=== PATIENT | female | born 1930 | race Caucasian/White ===

== ENCOUNTER → 2018-06-06 | Outpatient (CLI) | payer MEDICARE, OTHER ==
[~2018-06-06] MED LIST: ALEN70; AMOCLA875 PO; ASPI81CH PO; ASPI81EC; ATEN25; ATEN25 PO; ATEN50 PO; CALCIUM PO; CHOL10002 PO; CIPR250 PO; CLOP75 PO; HYDACE5 PO; IBUP600 PO; MOMENI; MONT10T; NAPR550 PO; OMEGA3 PO; OMEP20ER PO; Omeprazole20 M1 PO; PRAM.125; PRAM.125 PO; PRAM.5 PO; PROBIOTIC1 EAC1 PO; RABE20; RXPROACE PO; RXTRAM50 PO; TRAM50 PO; TRIHYD253B; Ultram50 MG PO
[2018-06-06 12:45] LABS: Source, Urine Clean Catch
[2018-06-06 15:21] LABS: Appearance, Urine Cloudy (Clear); Bilirubin, Urine Neg (Neg); Blood, Urine 3+ (Neg); Color, Urine Yellow (P-Yellow); Glucose Qualitative, Urine Neg (Neg); Ketones, Urine Neg (Neg); Leukocyte Esterase, Urine 3+ (Neg); Nitrite, Urine Neg (Neg); Protein, Urine 2+ (Neg); Urobilinogen, Urine NORM (Normal)
[2018-06-06 15:41] LABS: Bacteria Many /hpf; Red Blood Cells, Urine 0-2 /hpf (0-2); Squamous Epithelial Cells Rare /hpf (Few); White Blood Cells, Urine TNTC /hpf (0-5)
== END | disposition home or self-care (01) ==
LOC: LAB 12:43 → LAB SHORT 12:43
PROVIDERS: Internal Medicine
DX: N39.0 Urinary tract infection, site not specified (principal)
CPT/HCPCS: 81001

== ENCOUNTER → 2019-02-07 | Outpatient (CLI) | payer MEDICARE, OTHER ==
[2019-02-07 19:14] LABS: Source, Urine Catheter
[2019-02-07 19:48] LABS: Bilirubin, Urine Neg (Neg); Blood, Urine 2+ (Neg); Glucose Qualitative, Urine Neg (Neg); Ketones, Urine Neg (Neg); Leukocyte Esterase, Urine 1+ (Neg); Nitrite, Urine Neg (Neg); Protein, Urine 2+ (Neg); Specific Gravity, Urine 1.015 (1.003-1.022); Urobilinogen, Urine NORM (Normal); pH, Urine 6.5 (5.0-8.0)
[2019-02-07 20:17] LABS: Appearance, Urine Hazy (Clear); Color, Urine Yellow (P-Yellow)
[2019-02-07 20:19] LABS: Bacteria Few /hpf; Squamous Epithelial Cells Few /hpf (Few); White Blood Cells, Urine 25-50 /hpf (0-5)
== END | disposition home or self-care (01) ==
LOC: LAB SHORT 19:12 → LAB 19:12
PROVIDERS: Nurse Practitioner Women's Health
DX: R30.0 Dysuria (principal)
CPT/HCPCS: 81001; 87086

== ENCOUNTER → 2019-02-28 | Outpatient (CLI) | payer MEDICARE, OTHER ==
[2019-02-28 17:16] LABS: Source, Urine Catheter
[2019-02-28 17:36] LABS: Appearance, Urine Clear (Clear); Bilirubin, Urine Neg (Neg); Blood, Urine Neg (Neg); Color, Urine Yellow (P-Yellow); Glucose Qualitative, Urine Neg (Neg); Ketones, Urine Neg (Neg); Leukocyte Esterase, Urine 1+ (Neg); Nitrite, Urine Neg (Neg); Protein, Urine 1+ (Neg); Urobilinogen, Urine NORM (Normal)
[2019-02-28 17:47] LABS: Bacteria Rare /hpf; Red Blood Cells, Urine Rare /hpf (0-2); Squamous Epithelial Cells Few /hpf (Few)
== END | disposition home or self-care (01) ==
LOC: LAB SHORT 17:11 → LAB 17:11
PROVIDERS: Nurse Practitioner Women's Health
DX: R30.0 Dysuria (principal)
CPT/HCPCS: 81001

== ENCOUNTER → 2019-05-21 | Outpatient (CLI) | payer MEDICARE, OTHER ==
[2019-05-21 19:03] LABS: Campylobacter Sp Not Detected (NOT DETECT)
[2019-05-21 19:04] LABS: Adenovirus F 40/41 Not Detected (NOT DETECT); Astrovirus Not Detected (NOT DETECT); Cryptosporidium Not Detected (NOT DETECT); Cyclospora Cayetanensis Not Detected (NOT DETECT); E. Coli O157 Not Detected (NOT DETECT); Entamoeba Histolytica Not Detected (NOT DETECT); Enteroaggregative E. coli-EAEC Not Detected (NOT DETECT); Enteropathogenic E. coli-EPEC Not Detected (NOT DETECT); Enterotoxigenic E. coli-ETEC Not Detected (NOT DETECT); Giardia Lamblia Not Detected (NOT DETECT); Norovirus GI/GII Not Detected (NOT DETECT); Plesiomonas Shigelloides Not Detected (NOT DETECT); Rotavirus A Not Detected (NOT DETECT); Salmonella Sp Not Detected (NOT DETECT); Sapovirus Not Detected (NOT DETECT); Shiga Toxin-prod E. coli-STEC Not Detected (NOT DETECT); Shigella/Enteroin E. coli-EIEC Not Detected (NOT DETECT); Vibrio Cholerae Not Detected (NOT DETECT); Vibrio Sp Not Detected (NOT DETECT); Yersinia Enterocolitica Not Detected (NOT DETECT)
== END | disposition home or self-care (01) ==
LOC: LAB 17:15 → LAB SHORT 17:15 → LAB FUT 05-20 11:10
PROVIDERS: Internal Medicine Gastroenterology
DX: R19.7 Diarrhea, unspecified (principal); R30.0 Dysuria
CPT/HCPCS: 81003; 81015; 87086; 87507

== ENCOUNTER 2019-06-19 14:45 | Emergency (ER) | payer MEDICARE, OTHER ==
[~2019-06-19] VITALS: Ht 149.9 cm; Wt 48.1 kg
[2019-06-19 15:22] LABS: BASOPHILS ABSOLUTE AUTO 0.04 K/mm3 (0.00-0.23); BASOPHILS PERCENT AUTO 1 % (0-2); EOSINOPHILS ABSOLUTE AUTO 0.17 K/mm3 (0.00-0.68); EOSINOPHILS PERCENT AUTO 2 % (0-6); Hematocrit 43.7 % (33.0-51.0); Hemoglobin 14.4 g/dL (11.5-16.0); IMMATURE GRAN ABSOLUTE AUTO 0.03 K/mm3 (0.00-0.10); IMMATURE GRAN PERCENT AUTO 0 % (0-1); LYMPHOCYTES ABSOLUTE AUTO 2.75 K/mm3 (0.84-5.20); LYMPHOCYTES PERCENT AUTO 32 % (21-46); MONOCYTES ABSOLUTE AUTO 0.77 K/mm3 (0.16-1.47); MONOCYTES PERCENT AUTO 9 % (4-13); Mean Corpuscular HGB 29.8 pg (26.0-34.0); Mean Corpuscular Volume 91 fL (80-100); Mean Platelet Volume 9.3 fL (9.1-12.4); NEUTROPHILS ABSOLUTE AUTO 4.86 K/mm3 (1.96-9.15); NEUTROPHILS PERCENT AUTO 56 % (41-73); Platelet Count 281 K/mm3 (150-400); RDW Coefficient Variation 13.1 % (11.7-14.2); RDW Standard Deviation 43.2 fL (35.1-46.3); Red Blood Cell Count 4.83 M/mm3 (3.80-5.20); White Blood Cell Count 8.62 K/mm3 (4.00-11.30)
[2019-06-19 15:43] LABS: Alanine Aminotransfer (ALT/SGP 29 U/L (12-78); Albumin, Blood 3.6 g/dL (3.4-5.0); Alk Phos 77 U/L (50-136); Anion Gap 5 mmol/L (6-16); Aspartate Aminotrans (AST/SGOT 18 U/L (12-37); Bilirubin, Total 0.3 mg/dL (0.1-1.0); Blood Urea Nitrogen 11 mg/dL (8-24); Bun/Creatinine Ratio 14.7 (12.0-20.0); CO2, Blood 29 mmol/L (21-32); Chloride, Blood 102 mmol/L (98-108); Creatinine, Blood 0.75 mg/dL (0.40-1.00); Globulin, Blood 3.7 g/dL (2.2-4.0); Glomerular Filtration Rate >60 (60-); Glucose, Blood 102 mg/dL (70-99); Sodium, Blood 136 mmol/L (136-145); Total Protein, Blood 7.3 g/dL (6.4-8.2)
== END 2019-06-19 18:40 | disposition home or self-care (01) ==
LOC: ER 14:45
PROVIDERS: Physician Assistant
DX: R19.5 Other fecal abnormalities (principal); Z88.1 Allergy status to other antibiotic agents; Z88.5 Allergy status to narcotic agent; Z88.8 Allergy status to other drugs, medicaments and biological substances; Z79.899 Other long term (current) drug therapy; Z79.82 Long term (current) use of aspirin; I10 Essential (primary) hypertension
CPT/HCPCS: 36415; 80053; 82272; 83690; 85025; 86850; 86900; 86901; 99283

== ENCOUNTER → 2019-09-17 | Outpatient (CLI) | payer MEDICARE, OTHER ==
[2019-09-17 09:03] LABS: Source, Urine Clean Catch
[2019-09-17 09:36] LABS: Appearance, Urine Hazy (Clear); Bilirubin, Urine Neg (Neg); Blood, Urine 3+ (Neg); Color, Urine Yellow (P-Yellow); Glucose Qualitative, Urine Neg (Neg); Ketones, Urine Neg (Neg); Leukocyte Esterase, Urine 3+ (Neg); Nitrite, Urine Neg (Neg); Protein, Urine 2+ (Neg); Specific Gravity, Urine 1.015 (1.003-1.022); Urobilinogen, Urine NORM (Normal)
[2019-09-17 09:43] LABS: White Blood Cells, Urine TNTC /hpf (0-5)
[2019-09-17 09:44] LABS: Bacteria Few /hpf; Squamous Epithelial Cells Rare /hpf (Few)
[2019-09-17 09:45] LABS: Other Crystals Rare /hpf
== END | disposition home or self-care (01) ==
LOC: LAB SHORT 09:01 → LAB 09:01 → LAB FUT 09-16 18:45
PROVIDERS: Urology
DX: N30.00 Acute cystitis without hematuria (principal)
CPT/HCPCS: 81001; 87086

== ENCOUNTER → 2019-12-06 | Outpatient (CLI) | payer MEDICARE, OTHER ==
[2019-12-06 16:13] LABS: Adenovirus F 40/41 Not Detected (NOT DETECT); Astrovirus Not Detected (NOT DETECT); Campylobacter Sp Not Detected (NOT DETECT); Cryptosporidium Not Detected (NOT DETECT); Cyclospora Cayetanensis Not Detected (NOT DETECT); E. Coli O157 Not Detected (NOT DETECT); Entamoeba Histolytica Not Detected (NOT DETECT); Enteroaggregative E. coli-EAEC Not Detected (NOT DETECT); Enteropathogenic E. coli-EPEC Not Detected (NOT DETECT); Enterotoxigenic E. coli-ETEC Not Detected (NOT DETECT); Giardia Lamblia Not Detected (NOT DETECT); Norovirus GI/GII Not Detected (NOT DETECT); Plesiomonas Shigelloides Not Detected (NOT DETECT); Rotavirus A Not Detected (NOT DETECT); Salmonella Sp Not Detected (NOT DETECT); Sapovirus Not Detected (NOT DETECT); Shiga Toxin-prod E. coli-STEC Not Detected (NOT DETECT); Shigella/Enteroin E. coli-EIEC Not Detected (NOT DETECT); Vibrio Cholerae Not Detected (NOT DETECT); Vibrio Sp Not Detected (NOT DETECT); Yersinia Enterocolitica Not Detected (NOT DETECT)
== END | disposition home or self-care (01) ==
LOC: OLS 10:30 → LAB SHORT 10:30 → LAB FUT 07-10 10:05
PROVIDERS: Internal Medicine
DX: K52.9 Noninfective gastroenteritis and colitis, unspecified (principal)
CPT/HCPCS: 0097U

== ENCOUNTER → 2019-12-12 | Outpatient (CLI) | payer MEDICARE, OTHER ==
[2019-12-12 09:54] LABS: Source, Urine Clean Catch
[2019-12-12 11:13] LABS: White Blood Cells, Urine TNTC /hpf (0-5)
[2019-12-12 11:14] LABS: Bacteria Few /hpf; Calcium Oxalate Crystals Many /hpf; Red Blood Cells, Urine 25-50 /hpf (0-2); Squamous Epithelial Cells Few /hpf (Few)
== END | disposition home or self-care (01) ==
LOC: LAB SHORT 09:08 → OLS 09:08
PROVIDERS: Urology
DX: R39.15 Urgency of urination (principal)
CPT/HCPCS: 81001; 87086

== ENCOUNTER → 2020-05-20 | Outpatient (CLI) | payer MEDICARE, OTHER | END | disposition home or self-care (01) | LOC: LAB SHORT 19:00 → LAB EV 19:00 | DX: N39.0 Urinary tract infection, site not specified (principal) | CPT/HCPCS: 87077; 87086; 87186 ==

== ENCOUNTER → 2020-06-22 | Outpatient (CLI) | payer MEDICARE, OTHER | END | disposition home or self-care (01) | LOC: LAB SHORT 12:26 → PLD 12:26 → LAB SHORT 06-23 09:21 | DX: D48.5 Neoplasm of uncertain behavior of skin (principal) | CPT/HCPCS: 88305 ==

== ENCOUNTER → 2020-08-24 | Outpatient (CLI) | payer MEDICARE, OTHER ==
[2020-08-24 11:16] LABS: Source, Urine Clean Catch
[2020-08-24 12:18] LABS: Bilirubin, Urine Neg (Neg); Blood, Urine 3+ (Neg); Glucose Qualitative, Urine Neg (Neg); Ketones, Urine Neg (Neg); Leukocyte Esterase, Urine Neg (Neg); Nitrite, Urine Neg (Neg); Protein, Urine 1+ (Neg); Urobilinogen, Urine NORM (Normal); pH, Urine 6.5 (5.0-8.0)
[2020-08-24 12:37] LABS: Appearance, Urine Clear (Clear); Color, Urine Yellow (P-Yellow)
[2020-08-24 12:38] LABS: Bacteria Not Seen /hpf; Squamous Epithelial Cells Few /hpf (Few)
== END | disposition home or self-care (01) ==
LOC: LAB SHORT 11:12 → OLS 11:12 → LAB FUT 08-21 16:15
PROVIDERS: Urology
DX: N39.0 Urinary tract infection, site not specified (principal); R39.15 Urgency of urination
CPT/HCPCS: 81001

== ENCOUNTER 2021-01-28 06:44 | Day surgery (SDC) | payer MEDICARE, OTHER ==
[~2021-01-28] VITALS: Ht 149.9 cm; Wt 71.9 kg
[~2021-01-28 06:44] MED LIST changes: -ATEN50 PO; -CHOL10002 PO; +CHOLP PO; -CLOP75 PO; -OMEGA3 PO; +TRAZ50 PO
[2021-02-16] MEDS ORDERED: Mirapex1 MG PO (13:43)
[2021-02-16] MEDS ORDERED: ONDA8 PO (13:44)
[2021-02-16] MEDS ORDERED: TRAM50 PO (13:45)
[2021-02-16] MEDS ORDERED: LATANOPROST2.5 M3 BOTHEYES (13:46)
[2021-02-16] MEDS ORDERED: ATEN50 PO (13:46)
[2021-02-16] MEDS ORDERED: Pyridium100 MG PO (13:46)
[2021-02-16] MEDS ORDERED: CLOP75 PO (13:46)
[2021-02-16] MEDS ORDERED: VITAMIN D325 MC3 PO (14:29)
[2021-02-16] MEDS ORDERED: FISH OIL 1,2001 EAC7 PO (14:29)
[2021-02-16] MEDS ORDERED: DICLOFENAC SOD100 G1 TOP (14:30)
[2021-02-16] MEDS ORDERED: ESTRADIOL 0.1 MG VAG (14:30)
[2021-02-18] MEDS ORDERED: VISBIOME 112.51 EACH PO (11:26)
[2021-02-18] MEDS ORDERED: Acetaminophen325 M1 PO (11:26)
[2021-02-18] MEDS ORDERED: CEFP200 PO (11:26)
[2021-02-18] MEDS ORDERED: MIRALAX17 GM PO (11:26)
== END 2021-01-28 09:45 | disposition home or self-care (01) ==
LOC: ORSCSDS 06:44
PROVIDERS: Internal Medicine Gastroenterology
PROC: 0DBL8ZX Excision of Transverse Colon, Via Natural or Artificial Opening Endoscopic, Diagnostic (ICD-10-PCS; principal; 2021-01-28 08:00)
PROC: 0DBE8ZX Excision of Large Intestine, Via Natural or Artificial Opening Endoscopic, Diagnostic (ICD-10-PCS; principal; 2021-01-28 08:00)
PROC: 0DBK8ZX Excision of Ascending Colon, Via Natural or Artificial Opening Endoscopic, Diagnostic (ICD-10-PCS; principal; 2021-01-28 08:00)
DX: R19.7 Diarrhea, unspecified (principal); K62.89 Other specified diseases of anus and rectum; D12.3 Benign neoplasm of transverse colon; D12.2 Benign neoplasm of ascending colon; K57.30 Diverticulosis of large intestine without perforation or abscess without bleeding; I10 Essential (primary) hypertension; E11.9 Type 2 diabetes mellitus without complications; Z86.73 Personal history of transient ischemic attack (TIA), and cerebral infarction without residual deficits; E03.9 Hypothyroidism, unspecified; E78.5 Hyperlipidemia, unspecified; Z79.899 Other long term (current) drug therapy
CPT/HCPCS: 82947; 88305; J0461; J2405; J2704; J7120

== ENCOUNTER → 2021-02-11 | Outpatient (CLI) | payer MEDICARE, OTHER ==
[~2021-02-11] MED LIST changes: +ACET325 PO; +ATEN50 PO; +Acetaminophen325 M1 PO; +CEFP200 PO; +CLOP75 PO; +DICLOFENAC SOD100 G1 TOP; +ESTRADIOL 0.1 MG VAG; +FISH OIL 1,2001 EAC7 PO; +LATA.005SO BOTHEYES; +LATANOPROST2.5 M3 BOTHEYES; +MIRALAX17 GM PO; +Mirapex1 MG PO; +ONDA8 PO; +PLAVIX75 MG PO; +PRAMIPEXOLE DIHY1 M1 PO; +Pyridium100 MG PO; +SULFAMETHOXAZO1 EAC1 PO; +Tenormin50 MG PO; +VISBIOME 112.51 EACH PO; +VITAMIN D325 MC3 PO
== END | disposition home or self-care (01) ==
LOC: LAB SHORT 14:32 → LAB 14:32 → EDSTATUS 02-10 18:30 → LAB FUT 02-10 18:30
DX: R39.82 Chronic bladder pain (principal)
CPT/HCPCS: 87077; 87086; 87186

== ENCOUNTER 2021-02-13 19:26 | Emergency (ER) | payer MEDICARE, OTHER ==
[~2021-02-13] VITALS: Ht 149.9 cm; Wt 74.8 kg
[~2021-02-13 19:26] MED LIST changes: -ACET325 PO; -ATEN50 PO; -Acetaminophen325 M1 PO; -CEFP200 PO; -CLOP75 PO; -DICLOFENAC SOD100 G1 TOP; -ESTRADIOL 0.1 MG VAG; -FISH OIL 1,2001 EAC7 PO; -LATA.005SO BOTHEYES; -LATANOPROST2.5 M3 BOTHEYES; -MIRALAX17 GM PO; -Mirapex1 MG PO; -ONDA8 PO; -PLAVIX75 MG PO; -PRAMIPEXOLE DIHY1 M1 PO; -Pyridium100 MG PO; -SULFAMETHOXAZO1 EAC1 PO; -Tenormin50 MG PO; -VISBIOME 112.51 EACH PO; -VITAMIN D325 MC3 PO
[2021-02-13] MEDS ORDERED: SULFAMETHOXAZO1 EAC1 PO (19:56)
[2021-02-13] MEDS ORDERED: ACET325 PO (19:57)
[2021-02-13 20:50] LABS: Source, Urine Catheter
[2021-02-13 20:53] LABS: Appearance, Urine Hazy (Clear); BASOPHILS ABSOLUTE AUTO 0.04 K/mm3 (0.00-0.23); BASOPHILS PERCENT AUTO 1 % (0-2); Bilirubin, Urine Neg (Neg); Blood, Urine 3+ (Neg); Color, Urine Yellow (P-Yellow); EOSINOPHILS ABSOLUTE AUTO 0.21 K/mm3 (0.00-0.68); EOSINOPHILS PERCENT AUTO 3 % (0-6); Glucose Qualitative, Urine Neg (Neg); Hematocrit 42.6 % (33.0-51.0); Hemoglobin 14.1 g/dL (11.5-16.0); IMMATURE GRAN ABSOLUTE AUTO 0.04 K/mm3 (0.00-0.10); IMMATURE GRAN PERCENT AUTO 1 % (0-1); Ketones, Urine Neg (Neg); LYMPHOCYTES ABSOLUTE AUTO 2.07 K/mm3 (0.84-5.20); LYMPHOCYTES PERCENT AUTO 25 % (21-46); Leukocyte Esterase, Urine 3+ (Neg); MONOCYTES ABSOLUTE AUTO 0.89 K/mm3 (0.16-1.47); MONOCYTES PERCENT AUTO 11 % (4-13); Mean Corpuscular HGB 28.6 pg (26.0-34.0); Mean Corpuscular HGB Conc 33.1 g/dL (31.5-36.5); Mean Corpuscular Volume 86 fL (80-100); NEUTROPHILS ABSOLUTE AUTO 5.12 K/mm3 (1.96-9.15); NEUTROPHILS PERCENT AUTO 61 % (41-73); Nitrite, Urine Neg (Neg); Platelet Count 374 K/mm3 (150-400); Protein, Urine 2+ (Neg); RDW Coefficient Variation 13.3 % (11.7-14.2); RDW Standard Deviation 42.3 fL (35.1-46.3); Red Blood Cell Count 4.93 M/mm3 (3.80-5.20); Urobilinogen, Urine NORM (Normal); White Blood Cell Count 8.37 K/mm3 (4.00-11.30)
[2021-02-13 21:08] LABS: White Blood Cells, Urine 50-100 /hpf (0-5)
[2021-02-13 21:10] LABS: Alanine Aminotransfer (ALT/SGP 22 U/L (12-78); Albumin, Blood 3.4 g/dL (3.4-5.0); Albumin/Globulin Ratio 0.7 (0.8-1.8); Alk Phos 72 U/L (50-136); Anion Gap 9 mmol/L (6-16); Aspartate Aminotrans (AST/SGOT 14 U/L (12-37); Bacteria Mod /hpf; Bilirubin, Total 0.2 mg/dL (0.1-1.0); Blood Urea Nitrogen 13 mg/dL (8-24); Bun/Creatinine Ratio 14.5 (12.0-20.0); CO2, Blood 26 mmol/L (21-32); Calcium, Blood 10.6 mg/dL (8.5-10.1); Chloride, Blood 95 mmol/L (98-108); Globulin, Blood 4.8 g/dL (2.2-4.0); Glomerular Filtration Rate >60 (60-); Glucose, Blood 108 mg/dL (70-99); Magnesium, Blood 2.1 mg/dL (1.6-2.4); Potassium, Blood 3.2 mmol/L (3.5-5.5); Sodium, Blood 130 mmol/L (136-145); Squamous Epithelial Cells Few /hpf (Few); Total Protein, Blood 8.2 g/dL (6.4-8.2); Troponin I <0.015 ng/mL (0.000-0.040)
[2021-02-16] MEDS ORDERED: Mirapex1 MG PO (13:43)
[2021-02-16] MEDS ORDERED: ONDA8 PO (13:44)
[2021-02-16] MEDS ORDERED: TRAM50 PO (13:45)
[2021-02-16] MEDS ORDERED: CLOP75 PO (13:46)
[2021-02-16] MEDS ORDERED: ATEN50 PO (13:46)
[2021-02-16] MEDS ORDERED: LATANOPROST2.5 M3 BOTHEYES (13:46)
[2021-02-16] MEDS ORDERED: Pyridium100 MG PO (13:46)
[2021-02-16] MEDS ORDERED: VITAMIN D325 MC3 PO (14:29)
[2021-02-16] MEDS ORDERED: FISH OIL 1,2001 EAC7 PO (14:29)
[2021-02-16] MEDS ORDERED: DICLOFENAC SOD100 G1 TOP (14:30)
[2021-02-16] MEDS ORDERED: ESTRADIOL 0.1 MG VAG (14:30)
[2021-02-18] MEDS ORDERED: MIRALAX17 GM PO (11:26)
[2021-02-18] MEDS ORDERED: VISBIOME 112.51 EACH PO (11:26)
[2021-02-18] MEDS ORDERED: Acetaminophen325 M1 PO (11:26)
[2021-02-18] MEDS ORDERED: CEFP200 PO (11:26)
== END 2021-02-14 00:48 | disposition home or self-care (01) ==
LOC: ER 19:26
PROVIDERS: Emergency Medicine
DX: N39.0 Urinary tract infection, site not specified (principal); Z79.899 Other long term (current) drug therapy; Z88.1 Allergy status to other antibiotic agents; Z88.5 Allergy status to narcotic agent; Z88.8 Allergy status to other drugs, medicaments and biological substances
CPT/HCPCS: 36415; 71045; 80053; 81001; 83735; 84484; 85025; 87077; 87086; 87186; 93005; 93010; 96361; 96365; 99285-25; J0696

== ENCOUNTER 2021-02-16 11:48 | Inpatient (IN) | payer MEDICARE, OTHER ==
[~2021-02-16] VITALS: Ht 149.9 cm; Wt 73.0 kg
[~2021-02-16 11:48] MED LIST changes: +ACET325 PO; +SULFAMETHOXAZO1 EAC1 PO
[2021-02-16 12:28] LABS: BASOPHILS ABSOLUTE AUTO 0.06 K/mm3 (0.00-0.23); BASOPHILS PERCENT AUTO 1 % (0-2); EOSINOPHILS ABSOLUTE AUTO 0.16 K/mm3 (0.00-0.68); EOSINOPHILS PERCENT AUTO 1 % (0-6); Hematocrit 42.7 % (33.0-51.0); Hemoglobin 14.4 g/dL (11.5-16.0); IMMATURE GRAN ABSOLUTE AUTO 0.13 K/mm3 (0.00-0.10); IMMATURE GRAN PERCENT AUTO 1 % (0-1); LYMPHOCYTES ABSOLUTE AUTO 2.21 K/mm3 (0.84-5.20); LYMPHOCYTES PERCENT AUTO 19 % (21-46); MONOCYTES ABSOLUTE AUTO 0.66 K/mm3 (0.16-1.47); MONOCYTES PERCENT AUTO 6 % (4-13); Mean Corpuscular HGB 29.3 pg (26.0-34.0); Mean Corpuscular HGB Conc 33.7 g/dL (31.5-36.5); Mean Corpuscular Volume 87 fL (80-100); Mean Platelet Volume 8.4 fL (9.1-12.4); NEUTROPHILS ABSOLUTE AUTO 8.52 K/mm3 (1.96-9.15); NEUTROPHILS PERCENT AUTO 73 % (41-73); Platelet Count 446 K/mm3 (150-400); RDW Coefficient Variation 13.2 % (11.7-14.2); RDW Standard Deviation 42.3 fL (35.1-46.3); Red Blood Cell Count 4.92 M/mm3 (3.80-5.20); White Blood Cell Count 11.74 K/mm3 (4.00-11.30)
[2021-02-16 12:44] LABS: Alanine Aminotransfer (ALT/SGP 28 U/L (12-78); Albumin, Blood 3.2 g/dL (3.4-5.0); Albumin/Globulin Ratio 0.7 (0.8-1.8); Alk Phos 73 U/L (50-136); Anion Gap 6 mmol/L (6-16); Aspartate Aminotrans (AST/SGOT 18 U/L (12-37); Bilirubin, Total 0.4 mg/dL (0.1-1.0); Blood Urea Nitrogen 22 mg/dL (8-24); Bun/Creatinine Ratio 23.8 (12.0-20.0); CO2, Blood 27 mmol/L (21-32); Calcium, Blood 10.6 mg/dL (8.5-10.1); Chloride, Blood 97 mmol/L (98-108); Creatinine, Blood 0.93 mg/dL (0.40-1.00); Globulin, Blood 4.4 g/dL (2.2-4.0); Glomerular Filtration Rate >60 (60-); Glucose, Blood 136 mg/dL (70-99); Potassium, Blood 4.6 mmol/L (3.5-5.5); Sodium, Blood 130 mmol/L (136-145); Total Protein, Blood 7.6 g/dL (6.4-8.2)
[2021-02-16 13:21] LABS: Source, Urine Clean Catch
[2021-02-16 13:36] LABS: Appearance, Urine Hazy (Clear); Bilirubin, Urine Neg (Neg); Blood, Urine 2+ (Neg); Color, Urine Yellow (P-Yellow); Glucose Qualitative, Urine Neg (Neg); Ketones, Urine Neg (Neg); Leukocyte Esterase, Urine 3+ (Neg); Nitrite, Urine Neg (Neg); Protein, Urine 1+ (Neg); Urobilinogen, Urine NORM (Normal)
[2021-02-16] MEDS ORDERED: Mirapex1 MG PO ×2 (13:43)
[2021-02-16] MEDS ORDERED: ONDA8 PO ×2 (13:44)
[2021-02-16] MEDS ORDERED: TRAM50 PO ×2 (13:45)
[2021-02-16] MEDS ORDERED: ATEN50 PO ×2 (13:46)
[2021-02-16] MEDS ORDERED: Pyridium100 MG PO ×2 (13:46)
[2021-02-16] MEDS ORDERED: LATANOPROST2.5 M3 BOTHEYES ×2 (13:46)
[2021-02-16] MEDS ORDERED: CLOP75 PO ×2 (13:46)
[2021-02-16 13:56] LABS: Amorphous Light (0-Heavy); Bacteria Mod /hpf; Mucus Light (0-Heavy); Squamous Epithelial Cells Few /hpf (Few); White Blood Cells, Urine 25-50 /hpf (0-5)
[2021-02-16] MEDS ORDERED: FISH OIL 1,2001 EAC7 PO ×2 (14:29)
[2021-02-16] MEDS ORDERED: VITAMIN D325 MC3 PO ×2 (14:29)
[2021-02-16] MEDS ORDERED: ESTRADIOL 0.1 MG VAG ×2 (14:30)
[2021-02-16] MEDS ORDERED: DICLOFENAC SOD100 G1 TOP ×2 (14:30)
--- NOTE | 2021-02-16 17:34 | NUR ---
SUMMARY PT ADMITTED FROM THE ER, ABLE TO STAND AND TRANSFER TO THE BED, ALERT AND ORIENTED, FORGETFUL, NINILCHIK, PLEASANT AND COOPERATIVE WITH CARE, ORIENTED PT TO THE ROOM AND CALL SYSTEM, VSS, WILL CONT TO MONITOR
--- NOTE | 2021-02-17 04:33 | NUR ---
SUMMARY PT C/O CONSTIPATION. PT GIVEN MOM PER EMAR. PT HAS HAD NOTED BM'S. PT AOX3 AND COOPERATIVE W/ CARE. PT BLACKMAN DRAINING WELL TO GRAVITY. PT DENIES SOB OR CX PAIN. PT CURRENTLY SLEEPING IN NO DISTRESS. CALL LIGHT IN REACH AND BED ALARM ON.
[2021-02-17 05:05] LABS: BASOPHILS ABSOLUTE AUTO 0.05 K/mm3 (0.00-0.23); BASOPHILS PERCENT AUTO 0 % (0-2); EOSINOPHILS ABSOLUTE AUTO 0.14 K/mm3 (0.00-0.68); EOSINOPHILS PERCENT AUTO 1 % (0-6); Hemoglobin 13.7 g/dL (11.5-16.0); IMMATURE GRAN PERCENT AUTO 1 % (0-1); LYMPHOCYTES ABSOLUTE AUTO 2.38 K/mm3 (0.84-5.20); LYMPHOCYTES PERCENT AUTO 21 % (21-46); MONOCYTES PERCENT AUTO 7 % (4-13); Mean Corpuscular HGB 29.1 pg (26.0-34.0); Mean Corpuscular HGB Conc 33.4 g/dL (31.5-36.5); Mean Corpuscular Volume 87 fL (80-100); Mean Platelet Volume 8.5 fL (9.1-12.4); NEUTROPHILS ABSOLUTE AUTO 7.68 K/mm3 (1.96-9.15); NEUTROPHILS PERCENT AUTO 69 % (41-73); Platelet Count 431 K/mm3 (150-400); RDW Coefficient Variation 13.4 % (11.7-14.2); White Blood Cell Count 11.15 K/mm3 (4.00-11.30)
[2021-02-17 05:27] LABS: Alanine Aminotransfer (ALT/SGP 24 U/L (12-78); Albumin, Blood 2.7 g/dL (3.4-5.0); Albumin/Globulin Ratio 0.7 (0.8-1.8); Alk Phos 57 U/L (50-136); Anion Gap 6 mmol/L (6-16); Aspartate Aminotrans (AST/SGOT 15 U/L (12-37); Bilirubin, Total 0.2 mg/dL (0.1-1.0); Blood Urea Nitrogen 14 mg/dL (8-24); Bun/Creatinine Ratio 18.2 (12.0-20.0); CO2, Blood 27 mmol/L (21-32); Calcium, Blood 9.9 mg/dL (8.5-10.1); Chloride, Blood 102 mmol/L (98-108); Creatinine, Blood 0.77 mg/dL (0.40-1.00); Glomerular Filtration Rate >60 (60-); Glucose, Blood 129 mg/dL (70-99); Potassium, Blood 4.3 mmol/L (3.5-5.5); Sodium, Blood 135 mmol/L (136-145); Total Protein, Blood 6.7 g/dL (6.4-8.2)
--- NOTE | 2021-02-17 16:53 | NUR ---
PATIENT IS ALERT AND ORIENTED AND COOPERATIVE WITH CARE. SHE CALLS APPROPRIATELY. PATIENT WAS BATHED THIS MORNING BY FAMILY. SHE HAD A BM THIS MORNING. BLACKMAN IS IN PLACE AND DRAINING. PLAN IS TO DISCHARGE BACK TO [facility] WITH HOME HEALTH. THE PATIENT'S FAMILY IS VERY INVOLVED IN HER CARE. WILL CONTINUE TO MONITOR
[2021-02-18 05:06] LABS: BASOPHILS ABSOLUTE AUTO 0.06 K/mm3 (0.00-0.23); BASOPHILS PERCENT AUTO 1 % (0-2); EOSINOPHILS ABSOLUTE AUTO 0.34 K/mm3 (0.00-0.68); EOSINOPHILS PERCENT AUTO 4 % (0-6); Hematocrit 40.4 % (33.0-51.0); Hemoglobin 13.3 g/dL (11.5-16.0); IMMATURE GRAN ABSOLUTE AUTO 0.13 K/mm3 (0.00-0.10); IMMATURE GRAN PERCENT AUTO 2 % (0-1); LYMPHOCYTES ABSOLUTE AUTO 2.05 K/mm3 (0.84-5.20); LYMPHOCYTES PERCENT AUTO 23 % (21-46); MONOCYTES PERCENT AUTO 9 % (4-13); Mean Corpuscular HGB 29.6 pg (26.0-34.0); Mean Corpuscular HGB Conc 32.9 g/dL (31.5-36.5); Mean Corpuscular Volume 90 fL (80-100); Mean Platelet Volume 8.6 fL (9.1-12.4); NEUTROPHILS ABSOLUTE AUTO 5.51 K/mm3 (1.96-9.15); NEUTROPHILS PERCENT AUTO 62 % (41-73); Platelet Count 396 K/mm3 (150-400); RDW Coefficient Variation 13.6 % (11.7-14.2); RDW Standard Deviation 44.5 fL (35.1-46.3); Red Blood Cell Count 4.49 M/mm3 (3.80-5.20); White Blood Cell Count 8.89 K/mm3 (4.00-11.30)
[2021-02-18 05:25] LABS: Albumin, Blood 2.7 g/dL (3.4-5.0); Anion Gap 5 mmol/L (6-16); Blood Urea Nitrogen 18 mg/dL (8-24); Bun/Creatinine Ratio 21.6 (12.0-20.0); CO2, Blood 27 mmol/L (21-32); Calcium, Blood 9.9 mg/dL (8.5-10.1); Chloride, Blood 101 mmol/L (98-108); Creatinine, Blood 0.83 mg/dL (0.40-1.00); Glomerular Filtration Rate >60 (60-); Glucose, Blood 105 mg/dL (70-99); Phosphorus, Blood 2.4 mg/dL (2.5-4.9); Potassium, Blood 4.3 mmol/L (3.5-5.5); Sodium, Blood 133 mmol/L (136-145)
--- NOTE | 2021-02-18 05:49 | NUR ---
SUMMARY NO NEW ISSUES NOTED. PT HAS SLEPT WELL T/O SHIFT. PT MEDICATED FOR BACK PAIN THIS AM. PT BLACKMAN DRAINING WELL. PT REPORTS BEING EAGER TO GO HOME. PT CURRENTLY SLEEPING IN NO DISTRESS. CALL LIGHT IN REACH.
[2021-02-18] MEDS ORDERED: VISBIOME 112.51 EACH PO ×2 (11:26)
[2021-02-18] MEDS ORDERED: Acetaminophen325 M1 PO ×2 (11:26)
[2021-02-18] MEDS ORDERED: MIRALAX17 GM PO ×2 (11:26)
[2021-02-18] MEDS ORDERED: CEFP200 PO ×2 (11:26)
== END 2021-02-18 12:40 | disposition home health service (06) | DRG 871 ==
LOC: ER 11:48 → MEDS 11:49
PROVIDERS: Emergency Medicine; Nurse Practitioner Acute Care; ADMIT Family Medicine
DX: A41.4 Sepsis due to anaerobes (principal); G92 Toxic encephalopathy; N39.0 Urinary tract infection, site not specified; E87.1 Hypo-osmolality and hyponatremia; N13.30 Unspecified hydronephrosis; Z16.39 Resistance to other specified antimicrobial drug; Z66 Do not resuscitate; G25.81 Restless legs syndrome; K56.41 Fecal impaction; E78.5 Hyperlipidemia, unspecified; K21.9 Gastro-esophageal reflux disease without esophagitis; I10 Essential (primary) hypertension; M19.90 Unspecified osteoarthritis, unspecified site; E03.9 Hypothyroidism, unspecified; Z90.49 Acquired absence of other specified parts of digestive tract; Z90.89 Acquired absence of other organs; Z90.710 Acquired absence of both cervix and uterus; Z88.1 Allergy status to other antibiotic agents; Z88.5 Allergy status to narcotic agent; Z88.8 Allergy status to other drugs, medicaments and biological substances; Z79.899 Other long term (current) drug therapy; Z98.890 Other specified postprocedural states
CPT/HCPCS: 36415; 51702; 74177; 80053; 80069; 81001; 83690; 85025; 87086; 96361; 96365-59; 96366; 96372; 96375; 96376; 97110; 97116; 97162; 97165; 97530; 97535; 99285-25; A9270; G0378; J0696; J1650; J2405; J3010; J7030; J7050; P9612; Q9967

== ENCOUNTER 2021-06-18 10:54 | Emergency (ER) | payer MEDICARE, OTHER ==
[~2021-06-18] VITALS: Ht 149.9 cm; Wt 72.6 kg
[~2021-06-18 10:54] MED LIST changes: +ATEN50 PO; +Acetaminophen325 M1 PO; +CEFP200 PO; +CLOP75 PO; +DICLOFENAC SOD100 G1 TOP; +ESTRADIOL 0.1 MG VAG; +FISH OIL 1,2001 EAC7 PO; +LATANOPROST2.5 M3 BOTHEYES; +MIRALAX17 GM PO; +Mirapex1 MG PO; +ONDA8 PO; +Pyridium100 MG PO; +VISBIOME 112.51 EACH PO; +VITAMIN D325 MC3 PO
[2021-06-18 11:30] LABS: BASOPHILS ABSOLUTE AUTO 0.04 K/mm3 (0.00-0.23); BASOPHILS PERCENT AUTO 0 % (0-2); EOSINOPHILS ABSOLUTE AUTO 0.21 K/mm3 (0.00-0.68); EOSINOPHILS PERCENT AUTO 2 % (0-6); Hematocrit 39.1 % (33.0-51.0); Hemoglobin 13.2 g/dL (11.5-16.0); IMMATURE GRAN ABSOLUTE AUTO 0.06 K/mm3 (0.00-0.10); IMMATURE GRAN PERCENT AUTO 1 % (0-1); LYMPHOCYTES ABSOLUTE AUTO 2.83 K/mm3 (0.84-5.20); LYMPHOCYTES PERCENT AUTO 31 % (21-46); MONOCYTES ABSOLUTE AUTO 0.69 K/mm3 (0.16-1.47); MONOCYTES PERCENT AUTO 8 % (4-13); Mean Corpuscular HGB Conc 33.8 g/dL (31.5-36.5); Mean Corpuscular Volume 89 fL (80-100); Mean Platelet Volume 9.4 fL (9.1-12.4); NEUTROPHILS ABSOLUTE AUTO 5.36 K/mm3 (1.96-9.15); NEUTROPHILS PERCENT AUTO 58 % (41-73); Platelet Count 269 K/mm3 (150-400); RDW Coefficient Variation 13.2 % (11.7-14.2); RDW Standard Deviation 42.8 fL (35.1-46.3); White Blood Cell Count 9.19 K/mm3 (4.00-11.30)
[2021-06-18 11:54] LABS: Alanine Aminotransfer (ALT/SGP 25 U/L (12-78); Albumin, Blood 3.5 g/dL (3.4-5.0); Alk Phos 59 U/L (50-136); Anion Gap 5 mmol/L (6-16); Aspartate Aminotrans (AST/SGOT 12 U/L (12-37); Bilirubin, Total 0.2 mg/dL (0.1-1.0); Blood Urea Nitrogen 20 mg/dL (8-24); Bun/Creatinine Ratio 25.5 (12.0-20.0); CO2, Blood 28 mmol/L (21-32); Calcium, Blood 9.9 mg/dL (8.5-10.1); Chloride, Blood 104 mmol/L (98-108); Creatinine, Blood 0.78 mg/dL (0.40-1.00); Globulin, Blood 3.6 g/dL (2.2-4.0); Glomerular Filtration Rate >60 (60-); Glucose, Blood 139 mg/dL (70-99); Potassium, Blood 3.6 mmol/L (3.5-5.5); Sodium, Blood 137 mmol/L (136-145); Total Protein, Blood 7.1 g/dL (6.4-8.2)
[2021-06-18] MEDS ORDERED: PLAVIX75 MG PO (13:56)
[2021-06-18] MEDS ORDERED: LATA.005SO BOTHEYES (13:56)
[2021-06-18] MEDS ORDERED: Tenormin50 MG PO (13:57)
[2021-06-18] MEDS ORDERED: PRAMIPEXOLE DIHY1 M1 PO (13:57)
== END 2021-06-18 13:34 | disposition home or self-care (01) ==
LOC: ER 10:54
PROVIDERS: Emergency Medicine
DX: K92.1 Melena (principal); K92.2 Gastrointestinal hemorrhage, unspecified; Z79.02 Long term (current) use of antithrombotics/antiplatelets; Z79.899 Other long term (current) drug therapy; Z88.1 Allergy status to other antibiotic agents; Z88.5 Allergy status to narcotic agent; Z88.8 Allergy status to other drugs, medicaments and biological substances
CPT/HCPCS: 36415; 80053; 82272; 85025; 86850; 86900; 86901; 99283-25

== ENCOUNTER 2021-06-23 01:15 | Day surgery (SDC) | payer MEDICARE, OTHER ==
[~2021-06-23] VITALS: Wt 72.9 kg
[~2021-06-23 01:15] MED LIST changes: +LATA.005SO BOTHEYES; +PLAVIX75 MG PO; +PRAMIPEXOLE DIHY1 M1 PO; +Tenormin50 MG PO
[2021-06-23] MEDS ORDERED: VITAMIN D31000 UNI1 PO (14:19)
== END 2021-06-23 12:30 | disposition home or self-care (01) ==
LOC: ATC 01:15
DX: R33.9 Retention of urine, unspecified (principal); I10 Essential (primary) hypertension; E11.9 Type 2 diabetes mellitus without complications
CPT/HCPCS: 51702

== ENCOUNTER 2021-06-24 08:31 | Day surgery (SDC) | payer MEDICARE, OTHER ==
[~2021-06-24] VITALS: Ht 149.9 cm; Wt 72.4 kg
[~2021-06-24 08:31] MED LIST changes: +VITAMIN D31000 UNI1 PO
--- NOTE | 2021-06-24 09:27 | NUR ---
06/24/21 0927 Addie Santiago S PT. VERBALIZES DRINKING ABOUT 1/2 CUP OF WATER AT 0738. DR. JOSHI AWARE. ALSO PT.'S BP 187/80, DR. JOSHI AWARE, NO ORDERS GIVEN. PT. INFORMED THAT DR. JOSHI NEED TO RUN TO HOSPITAL & THAT HER PROCEDURE WOULD BE DELAYED.
--- NOTE | 2021-06-24 11:21 | NUR ---
06/24/21 1121 Addie Santiago PT. WANTED A WC OUT TO CAR. PT. A LITTLE UNSTEADY BUT STEADY WITH SBA.
== END 2021-06-24 10:48 | disposition home or self-care (01) ==
LOC: ORSCSDS 08:31
PROVIDERS: Internal Medicine Gastroenterology
PROC: 0DJ08ZZ Inspection of Upper Intestinal Tract, Via Natural or Artificial Opening Endoscopic (ICD-10-PCS; principal; 2021-06-24 09:45)
DX: K92.1 Melena (principal); R19.5 Other fecal abnormalities; K44.9 Diaphragmatic hernia without obstruction or gangrene; Z86.73 Personal history of transient ischemic attack (TIA), and cerebral infarction without residual deficits; E11.9 Type 2 diabetes mellitus without complications; Z79.01 Long term (current) use of anticoagulants; Z79.899 Other long term (current) drug therapy
CPT/HCPCS: 82947; J2704; J7120

== ENCOUNTER 2021-07-05 18:26 | Emergency (ER) | payer MEDICARE, OTHER ==
[~2021-07-05] VITALS: Ht 149.9 cm; Wt 72.6 kg
[2021-07-05 19:02] LABS: Source, Urine Clean Catch
[2021-07-05 19:17] LABS: Appearance, Urine Hazy (Clear); Bilirubin, Urine Neg (Neg); Blood, Urine 5+ (Neg); Color, Urine Yellow (P-Yellow); Glucose Qualitative, Urine Neg (Neg); Ketones, Urine Neg (Neg); Leukocyte Esterase, Urine 3+ (Neg); Nitrite, Urine Pos (Neg); Protein, Urine 3+ (Neg); Urobilinogen, Urine NORM (Normal)
[2021-07-05 19:33] LABS: White Blood Cells, Urine 25-50 /hpf (0-5)
[2021-07-05 19:34] LABS: Amorphous Light (0-Heavy); Bacteria Many /hpf; Calcium Oxalate Crystals Few /hpf; Squamous Epithelial Cells Few /hpf (Few)
[2021-07-05] MEDS ORDERED: Macrobid 100 M100 MG PO (20:37)
== END 2021-07-05 20:51 | disposition home or self-care (01) ==
LOC: ER 18:26
PROVIDERS: Physician Assistant
DX: N39.0 Urinary tract infection, site not specified (principal); I10 Essential (primary) hypertension; Z79.02 Long term (current) use of antithrombotics/antiplatelets; Z79.899 Other long term (current) drug therapy; Z88.1 Allergy status to other antibiotic agents; Z88.5 Allergy status to narcotic agent; Z88.8 Allergy status to other drugs, medicaments and biological substances
CPT/HCPCS: 81001; 87086; 99283; A9270

== ENCOUNTER 2021-07-22 01:31 | Day surgery (SDC) | payer MEDICARE, OTHER ==
[~2021-07-22 01:31] MED LIST changes: +Macrobid 100 M100 MG PO
== END 2021-07-22 13:48 | disposition home or self-care (01) ==
LOC: ATC 01:31
DX: R33.9 Retention of urine, unspecified (principal); E11.9 Type 2 diabetes mellitus without complications; I10 Essential (primary) hypertension; Z88.5 Allergy status to narcotic agent; Z88.8 Allergy status to other drugs, medicaments and biological substances
CPT/HCPCS: 51702

== ENCOUNTER 2021-08-17 04:03 | Emergency (ER) | payer MEDICARE, OTHER ==
[~2021-08-17] VITALS: Ht 149.9 cm; Wt 59.0 kg
[2021-08-17 05:34] LABS: Source, Urine Catheter
[2021-08-17 05:39] LABS: Appearance, Urine Turbid (Clear); Bilirubin, Urine Neg (Neg); Blood, Urine 3+ (Neg); Color, Urine Yellow (P-Yellow); Glucose Qualitative, Urine Neg (Neg); Ketones, Urine Neg (Neg); Leukocyte Esterase, Urine 3+ (Neg); Nitrite, Urine Neg (Neg); Protein, Urine 2+ (Neg); Urobilinogen, Urine NORM (Normal)
[2021-08-17 06:04] LABS: White Blood Cells, Urine TNTC /hpf (0-5)
[2021-08-17 06:09] LABS: Bacteria Many /hpf; Squamous Epithelial Cells Rare /hpf (Few); Triple Phosphate Crystals Rare /hpf
== END 2021-08-17 06:48 | disposition home or self-care (01) ==
LOC: ER 04:03
PROVIDERS: Emergency Medicine
DX: N39.0 Urinary tract infection, site not specified (principal); Z88.1 Allergy status to other antibiotic agents; Z88.5 Allergy status to narcotic agent; Z88.8 Allergy status to other drugs, medicaments and biological substances; Z79.899 Other long term (current) drug therapy; I10 Essential (primary) hypertension
CPT/HCPCS: 51702; 51798; 81001; 87077; 87086; 87186; 99283-25; A9270

== ENCOUNTER 2021-09-08 05:30 | Day surgery (SDC) | payer MEDICARE, OTHER | END 2021-09-08 08:40 | disposition home or self-care (01) | LOC: ATC 05:30 | DX: R33.9 Retention of urine, unspecified (principal) | CPT/HCPCS: 51702 ==

== ENCOUNTER → 2021-09-16 | Outpatient (CLI) | payer MEDICARE, OTHER | END | disposition home or self-care (01) | LOC: LAB SHORT 16:00 → LAB 16:00 | DX: N39.0 Urinary tract infection, site not specified (principal) | CPT/HCPCS: 87086 ==

== ENCOUNTER 2021-09-29 01:50 | Day surgery (SDC) | payer MEDICARE, OTHER ==
--- NOTE | 2021-09-29 11:26 | NUR ---
CLEANED PT WITH SOAP AND WATER PRIOR TO REMOVING LAST CATHETER. PRIOR TO NEW CATHETER PT WAS CLEANED WITH SOAP AND WATER. PTS LABIA WAS VERY RED. PT STATED LAST CATHETER WAS VERY PAINFULL WHEN SHE WAS UP WALKING.
== END 2021-09-29 11:07 | disposition home or self-care (01) ==
LOC: ATC 01:50
DX: R33.9 Retention of urine, unspecified (principal)
CPT/HCPCS: 51702

== ENCOUNTER 2021-10-20 05:19 | Day surgery (SDC) | payer MEDICARE, OTHER | END 2021-10-20 11:38 | disposition home or self-care (01) | LOC: ATC 05:19 | DX: R33.9 Retention of urine, unspecified (principal); E11.9 Type 2 diabetes mellitus without complications; I10 Essential (primary) hypertension; Z88.1 Allergy status to other antibiotic agents; Z88.5 Allergy status to narcotic agent; Z88.8 Allergy status to other drugs, medicaments and biological substances | CPT/HCPCS: 51702 ==

== ENCOUNTER 2021-12-01 04:59 | Day surgery (SDC) | payer MEDICARE, OTHER ==
[2021-12-01] MEDS ORDERED: TRAM50 PO (12:01)
== END 2021-12-01 11:15 | disposition home or self-care (01) ==
LOC: ATC 04:59
DX: R33.9 Retention of urine, unspecified (principal); E11.9 Type 2 diabetes mellitus without complications; I10 Essential (primary) hypertension; M19.90 Unspecified osteoarthritis, unspecified site
CPT/HCPCS: 51702

== ENCOUNTER 2021-12-22 01:12 | Day surgery (SDC) | payer MEDICARE, OTHER | END 2021-12-22 11:30 | disposition home or self-care (01) | LOC: ATC 01:12 | DX: R33.9 Retention of urine, unspecified (principal); E11.9 Type 2 diabetes mellitus without complications; I10 Essential (primary) hypertension | CPT/HCPCS: 51702 ==

== ENCOUNTER 2021-12-24 14:44 | Day surgery (SDC) | payer MEDICARE, OTHER ==
--- NOTE | 2021-12-24 17:12 | NUR ---
LATE ENTRY: PT ARRIVED WITH LEG BAG BACKWARDS, PT C/O TAP HURTING HER LEG AND DIFFICULTY REACHING IT. REPOSITED LEG LOCK AND PUT NEW BACK ON FOR PT. PT VERY HAPPY AND PLEASANT
== END 2021-12-24 15:20 | disposition home or self-care (01) ==
LOC: ATC 14:44
DX: R33.9 Retention of urine, unspecified (principal); E11.9 Type 2 diabetes mellitus without complications; I10 Essential (primary) hypertension; M19.90 Unspecified osteoarthritis, unspecified site
CPT/HCPCS: 99211

== ENCOUNTER → 2022-01-06 | Outpatient (CLI) | payer MEDICARE, OTHER | END | disposition home or self-care (01) | LOC: LAB SHORT 08:57 → LAB 08:57 | DX: N39.0 Urinary tract infection, site not specified (principal) | CPT/HCPCS: 87086 ==

== ENCOUNTER 2022-01-12 00:16 | Day surgery (SDC) | payer MEDICARE, OTHER | END 2022-01-12 11:36 | disposition home or self-care (01) | LOC: ATC 00:16 | DX: R33.9 Retention of urine, unspecified (principal); E11.9 Type 2 diabetes mellitus without complications; I10 Essential (primary) hypertension | CPT/HCPCS: 51702 ==